=== PATIENT | male | born 1975 | race Caucasian/White ===

== ENCOUNTER 2020-10-28 11:03 | Emergency (ER) | payer BC ==
[2020-10-28] MEDS ORDERED: EPINEPHrine 1 MG/1 ML Amp IM ONE (11:09)
[2020-10-28] MEDS ORDERED: Sodium Chloride 0.9% 10 ML Syringe FLUSH PRN (11:09)
[2020-10-28] MEDS ORDERED: methylPREDNISolone Sodium Succinate 125 MG/2 ML SDV IV ONE (11:10)
[2020-10-28] MEDS ORDERED: diphenhydrAMINE 50 MG/ML SDV IVPUSH ONE (11:10)
[2020-10-28] MEDS ORDERED: Take Home: predniSONE 20 MG, 2 Tab Pack PO ONE (11:12)
--- NOTE | 2020-10-28 11:55 | EDM.PDOC ---
ED HPI GENERAL MEDICAL PROBLEM - General Chief Complaint: Allergic Reaction Stated Complaint: BEE STING ALLERGY Time Seen by Provider: 10/28/20 11:03 Source of Information: Reports: Patient History Limitations: Reports: No Limitations - History of Present Illness INITIAL COMMENTS - FREE TEXT/NARRATIVE: Pt. presents to ER with complaints of bee sting to back of his arm. Pt. states that he has a history of allergies to bee stings. Initially he did not have any systemic symptoms but states that since coming to ER has developed some itching. Denies any throat tightness. No shortness of breath. No nausea, vomiting, or abdominal pain. Pt. states that he has not been stung for 20 years. He has an epi pen but did not have access to it today. Onset: Today Location: Reports: Upper Extremity, Right, Generalized Quality: Reports: Burning Severity: Moderate Left Upper Arm Pain Score (Numeric/FACES): 4 - Related Data Allergies Allergy/AdvReac Type Severity Reaction Status Date / Time bee venom protein (honey bee) Allergy Airway Verified 10/28/20 11:07 Tightness Home Meds: Home Meds . [No Known Home Meds] 10/28/20 [History] ED ROS ALLERGIC REACTION - Review of Systems Review Of Systems: See Below Constitutional: Reports: No Symptoms HEENT: Reports: No Symptoms Respiratory: Reports: No Symptoms Cardiovascular: Reports: No Symptoms Endocrine: Reports: No Symptoms GI/Abdominal: Reports: No Symptoms : Reports: No Symptoms Musculoskeletal: Reports: No Symptoms Skin: Reports: Pruritis Neurological: Reports: No Symptoms Psychiatric: Reports: No Symptoms Hematologic/Lymphatic: Reports: No Symptoms Immunologic: Reports: Environmental Allergy ED EXAM GENERAL NO PERIP PULSE - Physical Exam Exam: See Below Exam Limited By: No Limitations General Appearance: Alert, WD/WN, No Apparent Distress Head: Atraumatic, Normocephalic Neck: Normal Inspection, Supple, Non-Tender, Full Range of Motion Respiratory/Chest: No Respiratory Distress, Lungs Clear, Normal Breath Sounds, No Accessory Muscle Use, Chest Non-Tender Cardiovascular: Normal Peripheral Pulses, Regular Rate, Rhythm, No Edema, No JVD Skin Exam: Warm, Dry, Excoriations. No: No Rash, Erythema Course - Vital Signs Last Recorded V/S: Last Vital Signs Temp 35.7 C L 10/28/20 11:27 Pulse 82 10/28/20 11:27 Resp 16 10/28/20 11:27 BP 148/98 H 10/28/20 11:27 Pulse Ox 95 10/28/20 11:27 - Orders/Labs/Meds Orders: Active Orders 24 hr Category Date Time Status Sodium Chloride 0.9% [Saline Flush] Med 10/28/20 11:09 Active 10 ml FLUSH ASDIRECTED PRN Peripheral IV Insertion Adult [OM.PC] Routine Oth 10/28/20 11:10 Ordered Medication Orders Sodium Chloride (Sodium Chloride 0.9% 10 Ml Syringe) 10 ml FLUSH ASDIRECTED PRN PRN Reason: Keep Vein Open Meds: Medications Generic Name Dose Route Start Last Admin Trade Name Freq PRN Reason Stop Dose Admin Sodium Chloride 10 ml 10/28/20 11:09 Sodium Chloride 0.9% 10 Ml Syringe FLUSH ASDIRECTED PRN Keep Vein Open Discontinued Medications Generic Name Dose Route Start Last Admin Trade Name Freq PRN Reason Stop Dose Admin Diphenhydramine HCl 50 mg 10/28/20 11:10 10/28/20 11:26 Diphenhydramine 50 Mg/Ml Sdv IVPUSH 10/28/20 11:11 50 mg ONETIME ONE Administration Epinephrine HCl 0.3 mg 10/28/20 11:09 10/28/20 11:25 Epinephrine 1 Mg/1 Ml Amp IM 10/28/20 11:10 0.3 mg ONETIME ONE Administration Methylprednisolone Sodium Succinate 125 mg 10/28/20 11:10 10/28/20 11:26 Methylprednisolone Sodium Succinate 125 Mg/2 Ml Sdv IV 10/28/20 11:11 125 mg ONETIME ONE Administration Prednisone 1 packet 10/28/20 11:12 10/28/20 11:25 Take Home: Prednisone 20 Mg, 2 Tab Pack PO 10/28/20 11:13 1 packet ONETIME ONE Administration Departure - Departure Time of Disposition: 11:45 Disposition: Home, Self-Care 01 Clinical Impression: Bee sting reaction - Discharge Information Instructions: Allergies, Adult, [id number], Prednisone tablets Forms: ED Department Discharge Additional Instructions: Prednisone 20mg 2 tabs daily starting tomorrow Benadryl 25mg 2 tabs every 4-6 hours as needed for itching Recheck in clinic in 7-10 days, sooner if trouble breathing, throat tightness Sepsis Event Note (ED) - Evaluation Sepsis Screening Result: No Definite Risk - Focused Exam Vital Signs: Vital Signs Temp Pulse Resp BP Pulse Ox 10/28/20 11:27 35.7 C L 82 16 148/98 H 95 - Problem List Review Problem List Initiated/Reviewed/Updated: Yes - My Orders Last 24 Hours: My Active Orders 10/28/20 11:09 Sodium Chloride 0.9% [Saline Flush] 10 ml FLUSH ASDIRECTED PRN 10/28/20 11:10 Peripheral IV Insertion Adult [OM.PC] Routine - Assessment/Plan Last 24 Hours: My Active Orders 10/28/20 11:09 Sodium Chloride 0.9% [Saline Flush] 10 ml FLUSH ASDIRECTED PRN 10/28/20 11:10 Peripheral IV Insertion Adult [OM.PC] Routine Plan: Prednisone 20mg 2 tabs daily starting tomorrow Benadryl 25mg 2 tabs every 4-6 hours as needed for itching Recheck in clinic in 7-10 days, sooner if trouble breathing, throat tightness
== END 2020-10-28 11:45 | disposition home or self-care (01) ==
LOC: VM.ED 11:03
DX: T63.441A Toxic effect of venom of bees, accidental (unintentional), initial encounter (principal); Z91.030 Bee allergy status
CPT/HCPCS: 96372; 96374; 96375; 99282-25; 99283; J0171; J1200; J2930; J7512